=== PATIENT | female | born 1995 | race Caucasian/White ===

== ENCOUNTER 2018-01-28 08:42 | Day surgery (SDC) | payer OTHER ==
[2018-01-28] MEDS ORDERED: PROPOFOL 20 ML (11:26)
== END 2018-01-28 14:33 | disposition home or self-care (01) ==
LOC: GIL 08:42
DX: K44.9 Diaphragmatic hernia without obstruction or gangrene (principal); K21.9 Gastro-esophageal reflux disease without esophagitis; K29.60 Other gastritis without bleeding
CPT/HCPCS: 43239; 84703; 88305; 88312